=== PATIENT | male | born 1995 | race Asian ===

== ENCOUNTER 2025-07-08 15:20 | Inpatient (IN) | payer MEDICAID ==
[~2025-07-08] VITALS: Ht 165.1 cm; Wt 78.6 kg
[~2025-07-08 15:20] MED LIST: BENZ0.5T52 PO; CETI10TA77 PO; CHOL25TA4 PO; DIVA-153 PO; DOXE50CA70 PO; FOLI1TAB26 PO; LEVO25TA9 PO; LOXA10CA PO; OLAN10TA74 PO; OMEG100014 PO; TRAZ-252 PO; VITA180C2 PO
[2025-07-08] MEDS ORDERED: ZOLPIDEM TARTRATE 10 MG TABLET PO PRN (15:30)
[2025-07-08] MEDS ORDERED: BACITRACIN 28 GM OINTMENT TP PRN (22:45)
[2025-07-08] MEDS ORDERED: OMEPRAZOLE 20 MG CAPSULE PO PRN (22:45)
[2025-07-08] MEDS ORDERED: PETROLATUM,WHITE 28 GM JELLY TP PRN (22:45)
[2025-07-08] MEDS ORDERED: LOPERAMIDE HCL 2 MG CAPSULE PO PRN (22:45)
[2025-07-08] MEDS ORDERED: BENZOCAINE/MENTHOL [CEPACOL] LOZENGE PO PRN (22:45)
[2025-07-08] MEDS ORDERED: DOCUSATE SODIUM 100 MG CAPSULE PO PRN (22:45)
[2025-07-08] MEDS ORDERED: IBUPROFEN 600 MG TABLET PO PRN (22:45)
[2025-07-08] MEDS ORDERED: ONDANSETRON 4 MG TABLET PO PRN (22:45)
[2025-07-08] MEDS ORDERED: MAG HYDROX/ALUMINUM HYD/SIMETH ES 30 ML SUSPENSION UDCUP PO PRN (22:45)
[2025-07-08] MEDS ORDERED: MAGNESIUM HYDROXIDE SUSPENSION 30 ML UDCUP PO PRN (22:45)
[2025-07-08] MEDS ORDERED: ACETAMINOPHEN 325 MG TABLET PO PRN (22:45)
[2025-07-08] MEDS ORDERED: ALBUTEROL SULFATE HFA 90 MCG/PUFF 8 GM INHALER IH PRN (22:45)
[2025-07-08 23:02] VITALS: BP 134/87; PULSE 92; RESP 17; TEMP 98.8; O2SAT 98
[2025-07-09] MEDS: LEVOTHYROXINE SODIUM 25 MCG TABLET PO SCH (06:30)
[2025-07-09] MEDS: CHOLECALCIFEROL (VIT D3) 1,000 UNITS [25 MCG] TABLET PO SCH (08:30)
[2025-07-09] MEDS: CETIRIZINE HCL 10 MG TABLET PO SCH (08:30)
[2025-07-09] MEDS: VITAMIN E 400 UNIT PO SCH (08:31)
[2025-07-09] MEDS ORDERED: CHOLECALCIFEROL (VIT D3) 1,000 UNITS [25 MCG] TABLET PO SCH (09:00)
[2025-07-09 09:09] VITALS: BP 126/81; PULSE 91; RESP 17; TEMP 98.4; O2SAT 98
[2025-07-09 20:47] LABS: CHOL/HDL RATIO 6.8 (4.2-7.3)
[2025-07-09] MEDS: DIVALPROEX SODIUM 500 MG DR TABLET PO SCH (20:55)
[2025-07-09 21:39] VITALS: BP 115/80; PULSE 84; RESP 18; TEMP 98; O2SAT 99
[2025-07-10 08:57] LABS: PLATELET COUNT (AUTO) 254 K/uL (150-450); RED BLOOD CELL COUNT(AUTO) 5.82 MIL/uL (4.50-5.90); RED CELL DISTRIBUTION WIDTH 15.8 % (11.5-14.5); WHITE BLOOD COUNT (AUTO) 6.2 K/uL (4.5-11.0)
[2025-07-10 09:19] LABS: ASPARTATE AMINOTRANSFERASE 88 U/L (15-37); CALCIUM, TOTAL 8.6 mg/dL (8.8-10.5); CREATINE KINASE, TOTAL ONLY 329 U/L (39-308); CREATININE 1.10 mg/dL (0.60-1.30); GLOMERULAR FILTR. RATE CALC > 60 mL/min (>60); GLUCOSE,RANDOM 146 mg/dL (70-110); PHOSPHORUS 2.4 mg/dL (2.5-4.9); SODIUM SERUM 134 mmol/L (136-145); TOTAL PROTEIN, SERUM 6.9 g/dL (6.4-8.2); UREA NITROGEN, BLOOD 14 mg/dL (7-18)
[2025-07-10 10:29] VITALS: RESP 18
[2025-07-10 21:11] VITALS: BP 103/60; PULSE 92; RESP 17; TEMP 98; O2SAT 95
[2025-07-11 11:25] VITALS: BP 116/83; PULSE 110; RESP 16; TEMP 97.7; O2SAT 96
[2025-07-11 21:10] VITALS: BP 129/79; PULSE 72; RESP 18; TEMP 97.1; O2SAT 95
[2025-07-12 08:00] VITALS: BP 119/71; PULSE 67; RESP 20; TEMP 98.4; O2SAT 100
[2025-07-12 09:10] LABS: PLATELET COUNT (AUTO) 260 K/uL (150-450); RED BLOOD CELL COUNT(AUTO) 6.41 MIL/uL (4.50-5.90); RED CELL DISTRIBUTION WIDTH 15.9 % (11.5-14.5); WHITE BLOOD COUNT (AUTO) 6.4 K/uL (4.5-11.0)
[2025-07-12 09:13] LABS: RBC MORPHOLOGY COMMENT ABNORMAL RBC MORPH
[2025-07-12 09:36] LABS: ASPARTATE AMINOTRANSFERASE 40 U/L (15-37); CALCIUM, TOTAL 8.7 mg/dL (8.8-10.5); CHOL/HDL RATIO 6.3 (4.2-7.3); CREATININE 1.12 mg/dL (0.60-1.30); GLOMERULAR FILTR. RATE CALC > 60 mL/min (>60); GLUCOSE,RANDOM 176 mg/dL (70-110); LDL CHOL (CALC.) 102 mg/dL (0-130); PHOSPHORUS 2.2 mg/dL (2.5-4.9); SODIUM SERUM 135 mmol/L (136-145); TOTAL PROTEIN, SERUM 6.9 g/dL (6.4-8.2); UREA NITROGEN, BLOOD 16 mg/dL (7-18)
[2025-07-12 21:47] VITALS: BP 128/85; PULSE 85; RESP 18; TEMP 97.9; O2SAT 100
[2025-07-13 05:08] LABS: HEPATITIS B CORE IGM Negative (Negative); HEPATITIS C AB (EIA) Non Reactive (Non Reactive)
[2025-07-13 10:11] VITALS: BP 115/68; PULSE 94; RESP 18; TEMP 98.3; O2SAT 98
[2025-07-13 21:53] VITALS: BP 94/69; PULSE 85; RESP 18; TEMP 98.4; O2SAT 98
[2025-07-14 09:52] VITALS: BP 122/77; PULSE 88; RESP 18; TEMP 97.6; O2SAT 98
[2025-07-14 21:26] VITALS: BP 121/81; PULSE 91; RESP 18; TEMP 97.7; O2SAT 98
[2025-07-15 21:47] VITALS: BP 110/70; PULSE 98; RESP 17; TEMP 97.5; O2SAT 98
[2025-07-16 11:09] VITALS: BP 111/76; PULSE 83; RESP 17; TEMP 97.9; O2SAT 97
[2025-07-16 21:51] VITALS: BP 117/65; PULSE 86; RESP 18; O2SAT 99
[2025-07-17 13:23] VITALS: BP 118/73; PULSE 51; RESP 18; TEMP 97.3; O2SAT 98
[2025-07-17 21:28] VITALS: BP 107/73; PULSE 95; RESP 18; TEMP 98.2; O2SAT 98
[2025-07-18 09:35] VITALS: BP 121/69; PULSE 97; RESP 18; TEMP 97.7; O2SAT 98
[2025-07-18 20:22] VITALS: BP 111/81; PULSE 98; RESP 18; TEMP 98.2; O2SAT 100
[2025-07-19 08:59] VITALS: BP 108/65; PULSE 85; RESP 18; TEMP 97.6
== END 2025-07-19 14:10 | disposition home or self-care (01) | DRG 750 ==
LOC: 3EI 20:08
PROVIDERS: ADMIT Psychiatry & Neurology Psychiatry; ATTEND Psychiatry & Neurology Psychiatry
DX: F20.9 Schizophrenia, unspecified (principal); M62.82 Rhabdomyolysis; F15.10 Other stimulant abuse, uncomplicated; E03.9 Hypothyroidism, unspecified; K59.00 Constipation, unspecified; K21.9 Gastro-esophageal reflux disease without esophagitis; F41.9 Anxiety disorder, unspecified; G47.00 Insomnia, unspecified
CPT/HCPCS: 80053; 80061; 80074; 80164; 82140; 82550; 83036; 83735; 84100; 84443; 85025; 87081